=== PATIENT | male | born 1945 | race Caucasian/White ===

== ENCOUNTER 2019-09-13 12:06 | Day surgery (SDC) | payer MEDICARE ==
[~2019-09-13] VITALS: Ht 172.7 cm; Wt 85.3 kg
[2019-09-13] VITALS (9 sets, daily range): BP systolic 140–164; BP diastolic 69–95
[~2019-09-13 12:06] MED LIST: ASPI-611 PO; ATEN-169 PO; CLOP75TA35 PO; SIMV-42 PO
[2019-09-13] MEDS ORDERED: normal saline 1,000 ML IV SCH (13:00)
[2019-09-13] MEDS ORDERED: diphenhydrAMINE 25mg capsule PO PRN (13:00)
[2019-09-13] MEDS ORDERED: FERR134T2 PO (13:13)
[2019-09-13] MEDS ORDERED: LOSA100T57 PO (13:13)
[2019-09-13 13:16] LABS: BASOPHILS % (AUTO) 0.4 % (0-1); EOSINOPHILS # (AUTO) 0.1 X10'3 (0-0.9); EOSINOPHILS % (AUTO) 2.4 % (0-6); HEMATOCRIT 39.6 % (42.0-52.0); HEMOGLOBIN 13.2 g/dl (14.0-17.9); LYMPHOCYTES # (AUTO) 1.1 X10'3 (1.1-4.8); LYMPHOCYTES % (AUTO) 18.6 % (21-51); MEAN CORPUSCULAR HEMOGLOBIN 29.4 PG (27.0-31.0); MEAN CORPUSCULAR HGB CONC 33.4 g/dL (33.0-36.5); MEAN CORPUSCULAR VOLUME 88.1 FL (78-98); MEAN PLATELET VOLUME 8.9 FL (7.4-10.4); MONOCYTES # (AUTO) 0.4 X10'3 (0-0.9); MONOCYTES % (AUTO) 6.8 % (2-12); NEUTROPHILS # (AUTO) 4.2 X10'3 (1.8-7.7); NEUTROPHILS % (AUTO) 71.8 % (42-75); PLATELET COUNT 165 X10'3 (140-440); RED BLOOD COUNT 4.49 X10'6 (4.70-6.10); RED CELL DISTRIBUTION WIDTH 14.2 % (11.5-14.5); WHITE BLOOD COUNT 5.8 X10'3 (4.5-11.0)
[2019-09-13 13:23] LABS: ANION GAP 8 (8-16); BLOOD UREA NITROGEN 12 MG/DL (7-18); BUN/CREATININE RATIO 8.8 (5.4-32.0); CALCIUM 9.4 MG/DL (8.5-10.1); CHLORIDE 106 MMOL/L (99-107); CREATININE 1.36 MG/DL (0.60-1.10); GLUCOSE 101 MG/DL (70-104); MAGNESIUM 2.4 MG/DL (1.5-2.4); POTASSIUM 4.6 MMOL/L (3.5-5.1); SODIUM 141 MMOL/L (135-145); TOTAL CARBON DIOXIDE 26.8 MMOL/L (24-32); eGFR 51 ML/MIN
[2019-09-13] MEDS ORDERED: iohexol 350MG/ML 100ml bottle IV ONE ×3 (13:46→14:57)
[2019-09-13] MEDS ORDERED: LIDOcaine 1% (10mg/ml)w/preservative injection 20ml MDV ONE (13:46)
[2019-09-13] MEDS ORDERED: iohexol 350 MG/ML 50ML vial IV ONE (13:46)
[2019-09-13] MEDS ORDERED: midazolam 2 mg/2 ml injection ONE ×3 (13:46→14:18)
[2019-09-13] MEDS ORDERED: proCHLORperazine 10 MG/2 ml inj ONE (13:46)
[2019-09-13] MEDS ORDERED: fentaNYL/PF 50MCG/1 ML 2ML syringe ONE (13:46)
[2019-09-13] MEDS ORDERED: heparin 1,000unit/ml 10ml vial 10 ML ONE (14:23)
[2019-09-13] MEDS ORDERED: clopidogrel 300mg tablet ONE (15:37)
[2019-09-13] MEDS ORDERED: HYDROcodone/acetaminophen 10/325mg tab PO PRN (16:10)
[2019-09-13] MEDS ORDERED: OXAZEpam 15mg capsule PO PRN (16:10)
[2019-09-13] MEDS ORDERED: proCHLORperazine 10 MG/2 ml inj IV PRN (16:10)
[2019-09-13] MEDS ORDERED: HYDROcodone/acetaminophen 5mg/325mg tablet PO PRN (16:10)
[2019-09-13] MEDS ORDERED: ondansetron/PF 4mg/2ml inj IV PRN (16:10)
== END 2019-09-13 19:00 | disposition home or self-care (01) ==
LOC: SSTAY O 12:06
PROVIDERS: ATTEND Internal Medicine Cardiovascular Disease
DX: R94.39 Abnormal result of other cardiovascular function study (principal); T82.858A Stenosis of other vascular prosthetic devices, implants and grafts, initial encounter; I25.119 Atherosclerotic heart disease of native coronary artery with unspecified angina pectoris; Z87.891 Personal history of nicotine dependence; Y83.8 Other surgical procedures as the cause of abnormal reaction of the patient, or of later complication, without mention of misadventure at the time of the procedure; Y92.89 Other specified places as the place of occurrence of the external cause; R25.0 Abnormal head movements
CPT/HCPCS: 36415; 80048; 83735; 85025; 85610; 93005; 93459; 99152; 99153; C1769; C1874; C1884; C1894; C9600; C9604; J0780; J1644; J2001; J2250; J3010; Q9967; A4620; A6258; C1751; C1760

== ENCOUNTER 2022-02-27 11:13 | Emergency (ER) | payer MEDICARE ==
[~2022-02-27] VITALS: Ht 170.2 cm; Wt 92.2 kg
[2022-02-27] VITALS (11 sets, daily range): BP systolic 104–157; BP diastolic 44–75
[~2022-02-27 11:13] MED LIST changes: +CLOP75TA15 PO; -CLOP75TA35 PO; +FERR134T2 PO; +LOSA100T57 PO
[2022-02-27] MEDS ORDERED: glucagon, human recombinant 1mg kit IM ONE (13:15)
[2022-02-27] MEDS ORDERED: morphine 4 MG/ML inj SYRINge IV PRN (14:30)
[2022-02-27] MEDS ORDERED: labetalol 20mg/4ml (5mg/ml) syringe IV PRN (14:30)
[2022-02-27] MEDS ORDERED: acetaminophen 1,000mg/100ml IV 100 ML IV PRN (14:30)
[2022-02-27] MEDS ORDERED: hydrALAZINE 20mg/ml inj. IV PRN (14:30)
[2022-02-27] MEDS ORDERED: ringers solution, lacted 1,000 ML IV SCH (14:30)
[2022-02-27] MEDS ORDERED: ondansetron/PF 4mg/2ml inj IV PRN (14:30)
[2022-02-27] MEDS ORDERED: morphine 2 MG/ML inj. syringe IV PRN (14:30)
[2022-02-27] MEDS ORDERED: proCHLORperazine 10 MG/2 ml inj IV PRN (14:30)
[2022-02-27] MEDS ORDERED: meperidine/PF 25mg/ml syringe IV PRN ×3 (14:30)
[2022-02-27] MEDS ORDERED: fentaNYL/PF 50MCG/1 ML 2ML syringe ONE (14:36)
[2022-02-27] MEDS ORDERED: midazolam 1 mg/ML 2ml injection ONE (14:37)
[2022-02-27] MEDS ORDERED: sevoflurane 250ml liquid IH ONE (14:52)
[2022-02-27] MEDS ORDERED: propofol inj 20 ML IV ONE (15:13)
[2022-02-27] MEDS ORDERED: ondansetron/PF 4mg/2ml inj ONE (15:13)
[2022-02-27] MEDS ORDERED: LIDOcaine 2% (20mg/ml) 5ml vial ONE (15:13)
[2022-02-27] MEDS ORDERED: dexamethasone sod phosphate 4mg/ml inj. ONE (15:13)
[2022-02-27] MEDS ORDERED: rocuronium 10mg/ml inj IV ONE (15:13)
[2022-02-27] MEDS ORDERED: sugammadex 200mg/2ml injection IV ONE (15:19)
--- NOTE | 2022-02-27 15:34 | NUR ---
Received from OR via [facility] , accompanied by Anesthesiologist DR LABOY and report given by Anesthesiolgist. PT PRESENTS WITH 20G MITESH SPRAGUE. Addendum: 02/27/22 at 1543 by Mabel Morales RN, RN Amended: Links added.
--- NOTE | 2022-02-27 15:52 | NUR ---
ER CALLED, WE LOBO RECOVER PT IN PACU AND TAKE THE PT BACK TO THE ER FOR DISHARGE BY AUDREY MCNEAL NP.
--- NOTE | 2022-02-27 17:04 | NUR ---
PATIENT MEETS DISCHARGE CRITERIA. VSS. A & O X 4. TOOK THE PATIENT BACK TO THE ER FOR DISCHARGE. GAVE ER NURSE REPORT Addendum: 02/27/22 at 1711 by Ina Freeman RN Amended: Links added.
== END 2022-02-27 18:29 | disposition home or self-care (01) ==
LOC: ER 11:14
DX: T18.128A Food in esophagus causing other injury, initial encounter (principal); Z20.822 Contact with and (suspected) exposure to COVID-19; I10 Essential (primary) hypertension; Y93.89 Activity, other specified; Y92.89 Other specified places as the place of occurrence of the external cause; Y99.8 Other external cause status
CPT/HCPCS: 43247; 87811; 93005; 96372; 99285; C1773; J1100; J1610; J2250; J2405; J2704; J3010; J3490; J7120; Z7506; Z7512; 88305; 88342; 99284; A4615; A4618